=== PATIENT | female | born 1960 | race Caucasian/White ===

== ENCOUNTER 2017-09-12 17:51 | Inpatient (IN) | payer SELFPAY ==
[~2017-09-12] VITALS: Ht 177.8 cm; Wt 116.6 kg
[~2017-09-12 17:51] MED LIST: ADVAIR 250-501 EACH; ADVAIR 250/501 DISK IH; AZITHROMYCIN500 M1 PO; CYMBALTA60 MG PO; DELTASONE20 M1 PO; LAMOTRIGINE100 MG PO; METOPROLOL TART25 MG PO; MONTELUKAST SOD10 MG PO; PHENERGAN-CODE120 ML PO; PREDNISONE10 MG PO; PROAIR HFA8.5 GM IH; RITALIN20 MG; SPIRIVA RESPIMAT4 GM IH; TRAZODONE HCL50 MG PO; ZOLOFT100 M1
[2017-09-12 18:48] LABS: HEMATOCRIT 38.8 % (36.0-46.0); HEMOGLOBIN 12.9 G/DL (11.9-15.5); MCH 29.3 PG (29.0-34.0); MCHC 33.2 G/DL (30.0-36.0); PLATELET COUNT 342 K/uL (156-360); RBC DIS.WIDTH-CV 13.2 % (11.8-14.6); RBC DIS.WIDTH-SD 42.6 % (39-53); RED BLOOD COUNT 4.41 M/uL (3.80-5.20); WHITE BLOOD COUNT 11.3 K/uL (4.1-10.2)
[2017-09-12 18:54] LABS: ALBUMIN 3.8 g/dL (3.2-4.8)
[2017-09-12 18:55] LABS: CHLORIDE 100 mEq/L (99-109); POTASSIUM 3.7 mEq/L (3.7-5.4); SODIUM 133 mEq/L (136-147)
[2017-09-12 18:57] LABS: GLUCOSE 242 mg/dL (70-99); TOTAL PROTEIN 7.5 g/dL (6.4-8.3)
[2017-09-12 18:59] LABS: TOTAL BILIRUBIN 0.8 mg/dL (0.0-1.0)
[2017-09-12 19:00] LABS: ALKALINE PHOSPHATASE 190 IU/L (3-129)
[2017-09-12 19:01] LABS: CREATININE 0.8 mg/dL (0.6-1.3); GFR ESTIMATE (CALCULATED) > 59 mL/min/
[2017-09-12 19:02] LABS: AST (GOT) 27 IU/L (2-34); UREA NITROGEN (BUN) 6 mg/dL (9-23)
[2017-09-12 19:04] LABS: ALT (GPT) 23 IU/L (3-49)
[2017-09-12 19:47] LABS: LIPASE 22 U/L (1.0-51.0)
[2017-09-12] MEDS ORDERED: DIOVAN80 MG PO (21:18)
[2017-09-12] MEDS ORDERED: NEURONTIN100 MG PO (21:18)
[2017-09-12] MEDS ORDERED: ASPIRIN81 M2 PO (21:19)
[2017-09-12] MEDS ORDERED: MELATONIN10 M1 PO (21:19)
[2017-09-12] MEDS ORDERED: SPIRIVA RESPIMAT4 G1 IH (21:21)
[2017-09-12 23:13] VITALS: BP 136/62
[2017-09-13 05:25] LABS: HEMATOCRIT 35.8 % (36.0-46.0); HEMOGLOBIN 11.4 G/DL (11.9-15.5); MCH 28.9 PG (29.0-34.0); MCHC 31.8 G/DL (30.0-36.0); MCV 90.9 FL (83-99); PLATELET COUNT 299 K/uL (156-360); RBC DIS.WIDTH-CV 13.3 % (11.8-14.6); RBC DIS.WIDTH-SD 44.7 % (39-53); RED BLOOD COUNT 3.94 M/uL (3.80-5.20); WHITE BLOOD COUNT 9.9 K/uL (4.1-10.2)
[2017-09-13 05:59] LABS: CHLORIDE 103 MEQ/L (99-109); CREATININE 0.6 MG/DL (0.6-1.3); GFR ESTIMATE (CALCULATED) > 59 mL/min/; GLUCOSE 158 mg/dL (70-99); SODIUM 138 MEQ/L (136-147); UREA NITROGEN (BUN) 5 mg/dL (9-23)
[2017-09-13 08:54] VITALS: BP 156/70
[2017-09-13 12:17] VITALS: BP 131/66
[2017-09-13 16:53] VITALS: BP 140/64
[2017-09-13 21:00] VITALS: BP 130/65
[2017-09-13 23:34] VITALS: BP 148/71
[2017-09-14] VITALS: BP 135/78
[2017-09-14 04:00] VITALS: BP 130/74
[2017-09-14 07:16] LABS: HEMATOCRIT 37.9 % (36.0-46.0); HEMOGLOBIN 12.1 G/DL (11.9-15.5); MCH 28.9 PG (29.0-34.0); MCHC 31.9 G/DL (30.0-36.0); MCV 90.7 FL (83-99); PLATELET COUNT 327 K/uL (156-360); RBC DIS.WIDTH-CV 13.2 % (11.8-14.6); RBC DIS.WIDTH-SD 43.8 % (39-53); RED BLOOD COUNT 4.18 M/uL (3.80-5.20); WHITE BLOOD COUNT 10.8 K/uL (4.1-10.2)
[2017-09-14 07:17] VITALS: BP 130/60
[2017-09-14 07:50] LABS: ALBUMIN 3.4 G/DL (3.2-4.8); ALKALINE PHOSPHATASE 179 IU/L (3-129); ALT (GPT) 16 IU/L (3-49); AST (GOT) 17 IU/L (2-34); CHLORIDE 102 MEQ/L (99-109); CREATININE 0.6 MG/DL (0.6-1.3); GFR ESTIMATE (CALCULATED) > 59 mL/min/; GLUCOSE 165 mg/dL (70-99); LIPASE 21 U/L (1.0-51.0); POTASSIUM 4.1 MEQ/L (3.7-5.4); SODIUM 138 MEQ/L (136-147); TOTAL BILIRUBIN 0.8 MG/DL (0.0-1.0); TOTAL PROTEIN 6.6 G/DL (6.4-8.3); UREA NITROGEN (BUN) 6 mg/dL (9-23)
[2017-09-14 10:11] LABS: HEMOGLOBIN A1c (GLYCOHEMOGLOB) 6.9 % (Below 5.7)
[2017-09-14 19:36] VITALS: BP 124/57
[2017-09-15 00:04] VITALS: BP 104/53
[2017-09-15 08:19] VITALS: BP 123/62
[2017-09-15] MEDS ORDERED: PROTONIX40 MG PO (10:29)
[2017-09-16] MEDS ORDERED: PERCOCET 5/31 TABLET PO (02:03)
[2017-09-16] MEDS ORDERED: BENADRYL25 MG PO (02:03)
== END 2017-09-15 11:38 | disposition home or self-care (01) | DRG 384 ==
LOC: EME 17:51 → 5WEST 21:08 → EDOF 21:08 → ENRESERV 21:10 → 5WEST 23:07 → ENPENDDIS 09-15 → 5WEST 09-15 11:38
PROVIDERS: Hospitalist; Internal Medicine Gastroenterology; Nurse Practitioner Family
PROC: 0DB68ZX Excision of Stomach, Via Natural or Artificial Opening Endoscopic, Diagnostic (ICD-10-PCS; principal; 2017-09-14)
DX: K25.3 Acute gastric ulcer without hemorrhage or perforation (principal); E11.9 Type 2 diabetes mellitus without complications; F32.9 Major depressive disorder, single episode, unspecified; G47.30 Sleep apnea, unspecified; I10 Essential (primary) hypertension; J45.909 Unspecified asthma, uncomplicated; M19.90 Unspecified osteoarthritis, unspecified site; G62.9 Polyneuropathy, unspecified; R21 Rash and other nonspecific skin eruption; I95.9 Hypotension, unspecified; E66.9 Obesity, unspecified; Z68.38 Body mass index [BMI] 38.0-38.9, adult; F41.9 Anxiety disorder, unspecified; Z68.36 Body mass index [BMI] 36.0-36.9, adult; Z87.891 Personal history of nicotine dependence; K58.0 Irritable bowel syndrome with diarrhea
CPT/HCPCS: 74018; 74177; 76705; 80048; 80053; 82948; 83036; 83605; 83690; 85027; 87040; 88305; 88342 TC; 94640; 99202; C9113; G0378; J1650; J1815; J1956; J2270; J2405; J3010; J7030; J7512

== ENCOUNTER 2017-09-15 22:50 | Emergency (ER) | payer SELFPAY ==
[~2017-09-15] VITALS: Ht 177.8 cm; Wt 115.9 kg
[~2017-09-15 22:50] MED LIST changes: +ASPIRIN81 M2 PO; +DIOVAN80 MG PO; +MELATONIN10 M1 PO; +NEURONTIN100 MG PO; +PROTONIX40 MG PO; +SPIRIVA RESPIMAT4 G1 IH
[2017-09-15 23:13] LABS: HEMATOCRIT 37.7 % (36.0-46.0); HEMOGLOBIN 12.7 G/DL (11.9-15.5); MCH 29.5 PG (29.0-34.0); MCHC 33.7 G/DL (30.0-36.0); MCV 87.7 FL (83-99); PLATELET COUNT 396 K/uL (156-360); RBC DIS.WIDTH-CV 12.8 % (11.8-14.6)
[2017-09-15 23:27] LABS: ALBUMIN 3.6 g/dL (3.2-4.8); CHLORIDE 99 mEq/L (99-109); POTASSIUM 3.8 mEq/L (3.7-5.4); SODIUM 134 mEq/L (136-147)
[2017-09-15 23:30] LABS: GLUCOSE 172 mg/dL (70-99); TOTAL PROTEIN 7.6 g/dL (6.4-8.3)
[2017-09-15 23:31] LABS: TOTAL BILIRUBIN 0.8 mg/dL (0.0-1.0)
[2017-09-15 23:33] LABS: ALKALINE PHOSPHATASE 200 IU/L (3-129); CREATININE 0.8 mg/dL (0.6-1.3); GFR ESTIMATE (CALCULATED) > 59 mL/min/
[2017-09-15 23:34] LABS: UREA NITROGEN (BUN) 9 mg/dL (9-23)
[2017-09-15 23:35] LABS: AST (GOT) 17 IU/L (2-34)
[2017-09-15 23:36] LABS: ALT (GPT) 12 IU/L (3-49)
[2017-09-15 23:37] LABS: LIPASE 29 U/L (1.0-51.0)
[2017-09-16] MEDS ORDERED: BENADRYL25 MG PO (02:03)
[2017-09-16] MEDS ORDERED: PERCOCET 5/31 TABLET PO (02:03)
[2017-09-16 03:02] VITALS: BP 140/72
== END 2017-09-16 03:07 | disposition home or self-care (01) ==
LOC: EME 22:50
PROVIDERS: Emergency Medicine
DX: R10.13 Epigastric pain (principal); Z87.11 Personal history of peptic ulcer disease; L30.9 Dermatitis, unspecified; J45.909 Unspecified asthma, uncomplicated; I10 Essential (primary) hypertension; F41.9 Anxiety disorder, unspecified; F32.9 Major depressive disorder, single episode, unspecified; F31.9 Bipolar disorder, unspecified; Z87.891 Personal history of nicotine dependence; Z88.0 Allergy status to penicillin
CPT/HCPCS: 74018; 80053; 81003; 83605; 83690; 85027; 99281; 99285; J1200; J2270; J2405; J7030; S0028